=== PATIENT | female | born 2005 | race Caucasian/White ===

== ENCOUNTER 2024-01-07 08:30 | Outpatient (RCR) | payer OTHER, SELFPAY | END 2024-04-13 07:38 | disposition home or self-care (01) | PROVIDERS: Visit Provider Family Medicine | DX: M25.561 Pain in right knee (principal); S83.411A Sprain of medial collateral ligament of right knee, initial encounter; M62.81 Muscle weakness (generalized); Z51.89 Encounter for other specified aftercare | CPT/HCPCS: 97110; 97140; 97161 ==

== ENCOUNTER 2024-09-13 15:00 | Outpatient (RCR) | payer OTHER, SELFPAY | END 2025-01-11 23:59 | disposition home or self-care (01) | PROVIDERS: Visit Provider Student in an Organized Health Care Education/Training Program | DX: M54.50 Low back pain, unspecified (principal); M41.9 Scoliosis, unspecified; Z51.89 Encounter for other specified aftercare | CPT/HCPCS: 97110; 97140; 97162 ==